=== PATIENT | male | born 1950 | race Caucasian/White ===

== ENCOUNTER 2019-08-06 12:57 | Emergency (ER) | payer OTHER ==
[2019-08-06] MEDS ORDERED: Ketorolac Tromethamine 30 MG/ML VIAL ONE (13:45)
[2019-08-06] MEDS ORDERED: Cyclobenzaprine 10 MG TAB ONE (13:45)
--- NOTE | 2019-08-06 16:17 | RAD ---
RIGHT SHOULDER THREE VIEWS: 08/06/19 HISTORY: Right shoulder pain. Neck pain. FINDINGS/IMPRESSION: There are postop changes of rotator cuff repair. There is severe degenerative changes in the glenohum eral joint. No acute fracture or dislocation is seen. Degenerative changes are also seen in the spine . There are postoperative changes and metallic hardware in the lower cervical spine. POS: [facility]
--- NOTE | 2019-08-06 18:30 | CT ---
CT OF THE CERVICAL SPINE 08/06/19 COMPARISON: None. HISTORY: Bilateral neck pain worsening over the past month. TECHNIQUE: Axial CT imaging is obtained at 2.5 mm intervals through the cervical spine with coronal and sagittal reformatted imaging. FINDINGS: Evaluation for central canal and/or neural foraminal stenosis is limited on routine cervical spine CT . Imaged lung apices appear grossly unremarkable. There is a hypodense nodule within the right lobe o f the thyroid gland measuring approximately 1 cm, incompletely imaged on this exam. Follow-up thyroid ultrasound suggested. There is a medialized retropharyngeal course of the common carotid artery and internal carotid artery , right more prominent than left. The craniocervical junction appears intact. There is moderate degenerative change at the atlantoaxial interspace. The dens, occipital condyles, and C1-2 articulation demonstrate no acute findings. There is mild anterolisthesis of C7 on T1 measuring approximately 4 mm. C2-3: There is disc space narrowing with posterior disc osteophyte complex, primarily in the left par acentral region. Bilateral facet and uncovertebral osteophyte formation causes bilateral neural effie inal stenosis, left greater than right. C3-4: Posterior disc osteophyte complex present. Bilateral facet and uncovertebral osteophyte format ion with significant bilateral neural foraminal stenosis, left greater than right. C4-5: Prominent bilateral facet and uncovertebral osteophyte formation with significant bilateral bri ral foraminal stenosis. C5-6: Prominent posterior osteophyte lead to a degree of central canal stenosis. There is prominent l eft facet and uncovertebral osteophyte formation with severe left neural foraminal stenosis and proba ble moderate right neural foraminal stenosis. C6-7: Posterior osteophyte causes severe central canal stenosis. There is severe bilateral neural for aminal stenosis on the basis of prominent bilateral facet and uncovertebral osteophyte formation. C7-T1: Bilateral facet and uncovertebral osteophyte formation causes significant bilateral neural for aminal stenosis, left greater than right. Anterior discectomy and fusion hardware is present at the C5-6 and C6-7 levels with no evidence for h ardware failure. No acute fracture or dislocation is seen. IMPRESSION: Severe degenerative changes of the cervical spine. Multilevel anterior discectomy and fusion hardware present. The degree of central canal and/or neural foraminal stenosis is not optimally assess on thi s examination. If clinically warranted, the degree of underlying central canal and/or neural foramina l stenosis could be best assessed via myelogram. Posterior osteophyte causes significant central babs l stenosis most prominent at C6-7 and C5-6. POS: [facility]
== END 2019-08-06 15:14 | disposition home or self-care (01) ==
LOC: ERS 12:57
DX: M19.011 Primary osteoarthritis, right shoulder (principal); M48.02 Spinal stenosis, cervical region; E11.9 Type 2 diabetes mellitus without complications; E78.5 Hyperlipidemia, unspecified; E78.00 Pure hypercholesterolemia, unspecified; F32.9 Major depressive disorder, single episode, unspecified; Z79.899 Other long term (current) drug therapy
CPT/HCPCS: 72125; 96372; J1885

== ENCOUNTER 2020-01-18 09:26 | Outpatient (CLI) | payer OTHER ==
--- NOTE | 2020-01-18 12:15 | CT ---
CT CERVICAL SPINE WITHOUT CONTRAST: INDICATION: A 69-year-old male with cervical radiculopathy with neck and right arm pain since 2006. COMPARISON: Noncontrast CT of the cervical spine dated 08/06/2019. FINDINGS: The ACDF spanning C5 through C7 with intervertebral disk cages is stable. The hardware appears intac t. There is solid osseous incorporation of an interbody bone graft from C5 through C7. There is only mild anterior translation of C7 on T1 which is likely degenerative. There is some mild anterior degenerative translation of C4 on C5 which is stable which is also likely degenerative. Th e craniocervical junction is normal-appearing. There is no evidence to suggest acute fracture. Mastoid air cells are clear. 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 The lung apices are clear. There is a 1 cm hypodensity in the superior pole of the right thyroid gland. There are scattered carotid calcifications. The visualized intracranial contents appear within normal limits. The craniocervical junction demonstrates mild degenerative changes. At C2-C3, there is severe facet joint degenerative change. There is a broad-based disk-osteophyte co mplex with uncovertebral hypertrophy, greater on the left. There is stable moderate to severe left a nd mild right neural foraminal narrowing. At C3-4, there is a stable disk-osteophyte complex with severe bilateral facet joint degenerative [place]. There is bilateral uncovertebral hypertrophy. Constellation of findings induces stable mild ce ntral canal narrowing with suspected mild ventral contact of the spinal cord. There is stable mild b ilateral neural foraminal narrowing, left greater than right. At C4-5, there is advanced facet osteoarthrosis, right greater than left. There is uncovertebral hyp ertrophy and a broad-based disk bulge. No appreciable osseous central canal narrowing is evident. T here is moderate right and mild left neural foraminal narrowing which is likely stable. At C5-6, there is a residual osteophyte complex with facet hypertrophy inducing stable moderate centr al canal narrowing with severe left and moderate to severe right neural foraminal narrowing. At C6-7, there is a broad-based osteophyte complex inducing moderate central canal narrowing with sev ere right and moderate left neural foraminal narrowing that is stable to the prior exam. At C7-T1, there is a residual osteophyte complex and facet joint degenerative change inducing stable mild right neural foraminal narrowing. IMPRESSION: Stable postoperative cervical spine with stable severe multilevel spondylosis with multilevel central canal and neural foraminal narrowing above. This is stable to the prior exam. POS: [facility]
== END 2020-01-18 09:27 | disposition home or self-care (01) ==
LOC: BICCT 09:26
PROVIDERS: ATTEND Neurological Surgery
DX: M47.22 Other spondylosis with radiculopathy, cervical region (principal); Z98.890 Other specified postprocedural states
CPT/HCPCS: 72125

== ENCOUNTER 2020-07-14 16:48 | Observation (INO) | payer OTHER ==
[~2020-07-14 16:48] MED LIST: Iopamidol-370 76% 500 ML 1 ML ONE
[2020-07-14 17:27] LABS: #Eosinphils 0.3 thou/uL (0.0-0.7); #Lymphocytes 1.6 thou/uL (1.20-3.40); #Monocytes 0.9 thou/uL (0.11-0.59); #Neutrophils 11.7 thou/uL (1.40-6.50); %Basophils 0.1 % (0.0-1.0); %Eosinophils 2.2 % (0.0-10.0); %Lymphocytes 10.9 % (21.0-51.0); %Monocytes 6.3 % (0.0-10.0); %Neutrophils 80.5 % (42.0-75.0); Hemoglobin 14.4 g/dL (14.0-18.0); Mean Corpuscular HGB CONC 31.4 g/dL (32.0-36.0); Mean Corpuscular Hemoglobin 23.9 pg (27.0-31.0); Mean Platelet Volume 7.6 fL (7.4-10.4); Platelet Count 406 thou/uL (130-400); Red Blood Cell (RBC) Count 6.01 mill/uL (4.70-6.10); White Blood Cell (WBC) Count 14.5 thou/uL (4.8-10.8)
[2020-07-14 17:50] LABS: ALT (SGPT) 23 U/L (8-55); AST (SGOT) 18 U/L (5-34); Albumin 4.2 g/dL (3.4-4.8); Alkaline Phosphatase 114 U/L (40-110); Anion Gap 11 mmol/L (10-20); BUN (Urea Nitrogen) 11 mg/dL (8.4-25.7); Bilirubin, Total 0.3 mg/dL (0.2-1.2); CK (CPK) 196 U/L (30-200); Calc. Creatinine Clearance 0 mL/min (70-130); Calcium 9.9 mg/dL (7.8-10.44); Carbon Dioxide 29 mmol/L (23-31); Chloride 97 mmol/L (98-107); Globulin 3.8 g/dL (2.4-3.5); Glucose 118 mg/dL (80-115); Lipase 45 U/L (8-78); Potassium 3.9 mmol/L (3.5-5.1); Sodium 133 mmol/L (136-145)
[2020-07-14 20:16] LABS: Lactic Acid 2.4 mmol/L (0.5-2.2)
[2020-07-14] MEDS ORDERED: HumaLOG 300 UNITS/3 ML VIAL SC PRN ×2 (21:38)
[2020-07-14] MEDS ORDERED: Guaifenesin DM 100-10/5 ML UDCUP PO PRN (21:38)
[2020-07-14] MEDS ORDERED: Calcium Carbonate 500 MG ChewTAB PO PRN (21:38)
[2020-07-14] MEDS ORDERED: Zolpidem Tartrate 5 MG TAB PO PRN (21:38)
[2020-07-14] MEDS ORDERED: Dextrose 50% Abboject 50 ML SYRINGE SLOW IVP PRN (21:38)
[2020-07-14] MEDS ORDERED: Ondansetron ODT 4 MG TAB PO PRN (21:38)
[2020-07-14] MEDS ORDERED: Bisacodyl 10 MG SUPP PR PRN (21:38)
[2020-07-14] MEDS ORDERED: Loperamide HCl 2 MG CAP PO PRN (21:38)
[2020-07-14] MEDS ORDERED: Dextrose 5% in Water 1,000 ML IV PRN (21:38)
[2020-07-14] MEDS ORDERED: Ondansetron PF 4 MG/2 ML Vial IVP PRN (21:38)
[2020-07-14] MEDS ORDERED: Senokot S 8.6-50 MG TAB PO PRN (21:38)
[2020-07-14 22:24] LABS: Bilirubin Negative (Negative); Blood, Urine Negative (Negative); Clarity Clear (Clear); Glucose, Urine (Dipstick) Normal (Negative); Ketone, Urine Negative (Negative); Leukocyte Negative Leu/uL (Negative); Nitrite Negative (Negative); Protein, Urine (Dipstick) 10 mg/dL (Neg-Trace); Specific Gravity, Urine 1.022 (1.002-1.036); Urobilinogen Normal mg/dL (Less than 2); pH, Urine 6.5 (5.0-9.0)
[2020-07-14 23:17] VITALS: BMI 42.0
[2020-07-15] MEDS: Sodium Chloride 0.9% 1,000 ML IV SCH ×2 (00:20→15:49)
[2020-07-15] MEDS ORDERED: Acetaminophen 325 MG TAB ONE (01:32)
[2020-07-15] MEDS ORDERED: Zolpidem Tartrate 5 MG TAB ONE (01:32)
[2020-07-15] MEDS: Acetaminophen 325 MG TAB PO PRN ×2 (01:34→17:25)
[2020-07-15 01:54] LABS: SARS-CoV-2 PCR by NAA Not Detected (NotDetected)
[2020-07-15] MEDS ORDERED: rOPINIRole HCl 1 MG TAB PO SCH (03:30)
[2020-07-15 06:13] LABS: Lactic Acid 1.2 mmol/L (0.5-2.2)
[2020-07-15 06:14] LABS: #Eosinphils 0.6 thou/uL (0.0-0.7); #Lymphocytes 2.6 thou/uL (1.20-3.40); #Monocytes 1.1 thou/uL (0.11-0.59); #Neutrophils 10.9 thou/uL (1.40-6.50); %Basophils 0.2 % (0.0-1.0); %Eosinophils 3.7 % (0.0-10.0); %Lymphocytes 17.4 % (21.0-51.0); %Monocytes 7.2 % (0.0-10.0); %Neutrophils 71.6 % (42.0-75.0); Hemoglobin 13.3 g/dL (14.0-18.0); Mean Corpuscular HGB CONC 31.2 g/dL (32.0-36.0); Mean Corpuscular Hemoglobin 23.6 pg (27.0-31.0); Mean Corpuscular Volume 75.8 fL (78.0-98.0); Mean Platelet Volume 7.6 fL (7.4-10.4); Platelet Count 341 thou/uL (130-400); RBC Distribution Width 15.7 % (11.5-14.5); Red Blood Cell (RBC) Count 5.65 mill/uL (4.70-6.10); White Blood Cell (WBC) Count 15.2 thou/uL (4.8-10.8)
[2020-07-15 06:33] LABS: Albumin 3.6 g/dL (3.4-4.8)
[2020-07-15 06:34] LABS: Chloride 100 mmol/L (98-107)
[2020-07-15 06:37] LABS: Bilirubin, Total 0.3 mg/dL (0.2-1.2)
[2020-07-15 06:39] LABS: Calc. Creatinine Clearance 141 mL/min (70-130); Phosphorus 3.8 mg/dL (2.3-4.7)
[2020-07-15 06:40] LABS: BUN (Urea Nitrogen) 11 mg/dL (8.4-25.7)
[2020-07-15 06:41] LABS: Magnesium 1.8 mg/dL (1.6-2.6)
[2020-07-15 07:28] LABS: Potassium 3.7 mmol/L (3.5-5.1); Sodium 133 mmol/L (136-145)
[2020-07-15 07:29] LABS: Carbon Dioxide 27 mmol/L (23-31)
[2020-07-15 07:30] LABS: Glucose 138 mg/dL (80-115)
[2020-07-15 07:32] LABS: Globulin 3.6 g/dL (2.4-3.5); Protein, Total 7.2 g/dL (5.8-8.1)
[2020-07-15 07:33] LABS: AST (SGOT) 20 U/L (5-34); Alkaline Phosphatase 103 U/L (40-110)
[2020-07-15 07:37] LABS: ALT (SGPT) 21 U/L (8-55)
[2020-07-15 07:38] LABS: Anion Gap 10 mmol/L (10-20)
[2020-07-15] MEDS ORDERED: Famotidine 20 MG TAB ONE (07:52)
[2020-07-15] MEDS: Famotidine 20 MG TAB PO SCH ×2 (08:06→21:55)
[2020-07-15] MEDS ORDERED: Potassium Chloride 20 MEQ TAB PO SCH (09:00)
[2020-07-15] MEDS ORDERED: Potassium Chloride 20 MEQ TAB ONE (09:39)
[2020-07-15] MEDS: Atenolol 25 MG TAB PO SCH (09:40)
[2020-07-15] MEDS: Magnesium Oxide 400 MG TAB PO SCH (09:42)
[2020-07-15] MEDS ORDERED: HumaLOG 300 UNITS/3 ML VIAL ONE (12:09)
[2020-07-15] MEDS ORDERED: Bupropion 150 MG XL TAB PO SCH (12:15)
[2020-07-15] MEDS ORDERED: PARoxetine 20 MG TAB PO SCH (12:15)
[2020-07-15 14:51] LABS: Troponin I Less than 0.010 ng/mL (< 0.028)
[2020-07-15] MEDS: metFORMIN 850 MG TAB PO SCH (17:25)
[2020-07-15] MEDS ORDERED: Cyclobenzaprine 10 MG TAB PO PRN (18:17)
[2020-07-15] MEDS ORDERED: rOPINIRole HCl 0.5 MG TAB PO SCH (21:00)
[2020-07-15] MEDS ORDERED: Gabapentin 300 MG CAP PO SCH (21:30)
[2020-07-16] MEDS: Sodium Chloride 0.9% 1,000 ML IV SCH (05:05)
[2020-07-16 05:06] LABS: Hemoglobin A1c 8.9 % (4.0-6.0)
[2020-07-16 05:08] LABS: #Eosinphils 0.5 thou/uL (0.0-0.7); #Lymphocytes 2.4 thou/uL (1.20-3.40); #Monocytes 0.8 thou/uL (0.11-0.59); #Neutrophils 7.8 thou/uL (1.40-6.50); %Basophils 0.2 % (0.0-1.0); %Eosinophils 4.7 % (0.0-10.0); %Lymphocytes 20.9 % (21.0-51.0); %Neutrophils 67.2 % (42.0-75.0); Hemoglobin 12.5 g/dL (14.0-18.0); Mean Corpuscular Hemoglobin 23.6 pg (27.0-31.0); Mean Corpuscular Volume 75.9 fL (78.0-98.0); Mean Platelet Volume 7.6 fL (7.4-10.4); Platelet Count 349 thou/uL (130-400); RBC Distribution Width 15.6 % (11.5-14.5); Red Blood Cell (RBC) Count 5.31 mill/uL (4.70-6.10); White Blood Cell (WBC) Count 11.7 thou/uL (4.8-10.8)
[2020-07-16 05:22] LABS: Anion Gap 13 mmol/L (10-20); BUN (Urea Nitrogen) 11 mg/dL (8.4-25.7); Calc. Creatinine Clearance 149 mL/min (70-130); Calcium 8.8 mg/dL (7.8-10.44); Carbon Dioxide 23 mmol/L (23-31); Cardiac Risk 4.8 (Less than 4.5); Chloride 103 mmol/L (98-107); Cholesterol 134 mg/dl (< 200 Desired); Glucose 144 mg/dL (80-115); HDL Cholesterol 28 mg/dL (>60 Neg Risk); LDL Cholesterol, Calculated 82 mg/dL; Sodium 135 mmol/L (136-145); Triglycerides 121 mg/dL (Less than 150)
[2020-07-16] MEDS ORDERED: PARoxetine 20 MG TAB PO SCH (09:00)
[2020-07-16] MEDS ORDERED: Bupropion 150 MG XL TAB PO SCH (09:00)
[2020-07-16] MEDS ORDERED: Alogliptin 25 MG TAB PO SCH (09:00)
[2020-07-16] MEDS: metFORMIN 850 MG TAB PO SCH (09:21)
[2020-07-16] MEDS: Magnesium Oxide 400 MG TAB PO SCH (09:22)
[2020-07-16] MEDS: Famotidine 20 MG TAB PO SCH (09:22)
[2020-07-16] MEDS: Atenolol 25 MG TAB PO SCH (09:22)
[2020-07-16 13:25] VITALS: BP 174/83; TEMP 98.1
[2020-07-16] MEDS ORDERED: Gabapentin 300 MG CAP PO SCH (21:00)
== END 2020-07-16 16:05 | disposition home or self-care (01) ==
LOC: ERS 16:48 → INTOOBSV 20:58 → ERHOLD 20:58 → 2SW 07-15 15:13
PROVIDERS: ADMIT Internal Medicine; ATTEND Hospitalist
DX: R55 Syncope and collapse (principal); I49.3 Ventricular premature depolarization; I10 Essential (primary) hypertension; E11.10 Type 2 diabetes mellitus with ketoacidosis without coma; E87.1 Hypo-osmolality and hyponatremia; E78.5 Hyperlipidemia, unspecified; E78.00 Pure hypercholesterolemia, unspecified; D72.829 Elevated white blood cell count, unspecified; I08.1 Rheumatic disorders of both mitral and tricuspid valves; Z79.84 Long term (current) use of oral hypoglycemic drugs; Z79.899 Other long term (current) drug therapy; Z88.5 Allergy status to narcotic agent; Z88.8 Allergy status to other drugs, medicaments and biological substances; Z20.822 Contact with and (suspected) exposure to COVID-19
CPT/HCPCS: 36415; 36416; 70450; 70551; 71045; 71275; 80048; 80053; 80061; 81003; 82550; 83036; 83605; 83690; 83735; 83880; 84100; 84146; 84443; 84484; 85025; 85379; 87040; 87635; 93005; 93306; 93880; 94640; G0378; J1815; J7620; Q9967; U0003; U0005

== ENCOUNTER 2020-07-19 18:43 | Inpatient (IN) | payer OTHER ==
[2020-07-19] MEDS ORDERED: Fentanyl 100 MCG/2 ML VIAL ONE ×2 (19:09→22:51)
[2020-07-19] MEDS ORDERED: cefTRIAXone\\ROCEPHIN 1 GM VIAL ONE (19:09)
[2020-07-19] MEDS ORDERED: Ketorolac Tromethamine 30 MG/ML VIAL ONE (19:09)
[2020-07-19 19:48] LABS: Hemoglobin 14.3 g/dL (14.0-18.0); Mean Corpuscular HGB CONC 31.4 g/dL (32.0-36.0); Mean Corpuscular Hemoglobin 23.5 pg (27.0-31.0); Mean Corpuscular Volume 74.9 fL (78.0-98.0); Mean Platelet Volume 7.7 fL (7.4-10.4); Platelet Count 436 thou/uL (130-400); RBC Distribution Width 15.9 % (11.5-14.5); Red Blood Cell (RBC) Count 6.06 mill/uL (4.70-6.10); White Blood Cell (WBC) Count 24.9 thou/uL (4.8-10.8)
[2020-07-19 20:07] LABS: ALT (SGPT) 25 U/L (8-55); AST (SGOT) 27 U/L (5-34); Albumin 4.3 g/dL (3.4-4.8); Alkaline Phosphatase 103 U/L (40-110); Anion Gap 19 mmol/L (10-20); BUN (Urea Nitrogen) 16 mg/dL (8.4-25.7); Bilirubin, Total 0.6 mg/dL (0.2-1.2); Calc. Creatinine Clearance 0 mL/min (70-130); Calcium 9.6 mg/dL (7.8-10.44); Carbon Dioxide 20 mmol/L (23-31); Chloride 91 mmol/L (98-107); Globulin 4.1 g/dL (2.4-3.5); Glucose 164 mg/dL (80-115); Potassium 4.4 mmol/L (3.5-5.1); Protein, Total 8.4 g/dL (5.8-8.1); Sodium 126 mmol/L (136-145)
[2020-07-19 20:08] LABS: Anisocytosis SLIGHT = 6-15 cells (100X) (0-5/hpf); Band 11 % (5-11); Eosinophils 1 % (0-10); Hypochromia SLIGHT = 6-15 cells (100X) (0-5/hpf); Lymphocytes 3 % (21-51); MDiff Complete? YES; Monocytes 6 % (0-10); Myelocyte 1 % (0-0); Neutrophil 78 % (42-75); Platelet Morphology Comment Appears Increased; Polychromasia SLIGHT = 2-3 cells (100X) (0-2/hpf)
[2020-07-19] MEDS ORDERED: Vancomycin 1 GM/200 ML BAG ONE (20:37)
[2020-07-19] MEDS ORDERED: Loperamide HCl 2 MG CAP PO PRN (23:10)
[2020-07-19] MEDS ORDERED: Dextrose 50% Abboject 50 ML SYRINGE SLOW IVP PRN (23:10)
[2020-07-19] MEDS ORDERED: Ondansetron PF 4 MG/2 ML Vial IVP PRN (23:10)
[2020-07-19] MEDS ORDERED: Bisacodyl 5 MG TAB PO PRN (23:10)
[2020-07-19] MEDS ORDERED: Dextrose 5% in Water 1,000 ML IV PRN (23:10)
[2020-07-19] MEDS ORDERED: hydrALAZINE 20 MG/ML VIAL SLOW IVP PRN (23:12)
[2020-07-19] MEDS ORDERED: Vancomycin 1 GM in Premix Bag 1 BAG IVPB SCH (23:15)
[2020-07-20 00:29] VITALS: BMI 41.2
[2020-07-20] MEDS: Acetaminophen 325 MG TAB PO PRN ×4 (01:29→23:17)
[2020-07-20 06:09] LABS: #Eosinphils 0.3 thou/uL (0.0-0.7); #Lymphocytes 2.2 thou/uL (1.20-3.40); #Monocytes 1.4 thou/uL (0.11-0.59); #Neutrophils 10.7 thou/uL (1.40-6.50); %Basophils 0.2 % (0.0-1.0); %Eosinophils 2.1 % (0.0-10.0); %Monocytes 9.4 % (0.0-10.0); %Neutrophils 73.3 % (42.0-75.0); Hemoglobin 12.7 g/dL (14.0-18.0); Mean Corpuscular HGB CONC 31.5 g/dL (32.0-36.0); Mean Corpuscular Hemoglobin 24.2 pg (27.0-31.0); Mean Corpuscular Volume 76.7 fL (78.0-98.0); Mean Platelet Volume 7.7 fL (7.4-10.4); Platelet Count 343 thou/uL (130-400); RBC Distribution Width 15.7 % (11.5-14.5); Red Blood Cell (RBC) Count 5.23 mill/uL (4.70-6.10); White Blood Cell (WBC) Count 14.7 thou/uL (4.8-10.8)
[2020-07-20 06:22] LABS: Anion Gap 14 mmol/L (10-20); BUN (Urea Nitrogen) 18 mg/dL (8.4-25.7); Calc. Creatinine Clearance 124 mL/min (70-130); Calcium 8.7 mg/dL (7.8-10.44); Carbon Dioxide 24 mmol/L (23-31); Chloride 94 mmol/L (98-107); Glucose 114 mg/dL (80-115); Potassium 3.6 mmol/L (3.5-5.1); Sodium 128 mmol/L (136-145)
[2020-07-20 07:02] LABS: Iron 24 ug/dL (65-175); Iron Binding Capacity, Total 369 mcg/dL (261-462)
[2020-07-20 08:51] LABS: Creatinine, Urine 82.2 mg/dL (63-166)
[2020-07-20] MEDS: Bupropion 150 MG XL TAB PO SCH (09:00)
[2020-07-20] MEDS: Zinc Sulfate 220 MG CAP PO SCH (09:00)
[2020-07-20] MEDS: metFORMIN 850 MG TAB PO SCH ×2 (09:01→16:44)
[2020-07-20] MEDS: Atenolol 25 MG TAB PO SCH (09:01)
[2020-07-20] MEDS: glipiZIDE 10 MG TAB PO SCH ×2 (09:01→20:05)
[2020-07-20] MEDS: Enoxaparin Sodium 40 MG/0.4 ML SYRINGE SC SCH (09:01)
[2020-07-20] MEDS: VANCOMYCIN 1.25 GM/250 ML BAG 1.25 GM in Premix Bag 1 BAG IVPB SCH ×2 (09:02→20:00)
[2020-07-20] MEDS ORDERED: Ketorolac Tromethamine 30 MG/ML VIAL IVP SCH (10:00)
[2020-07-20] MEDS ORDERED: Potassium Chloride 20 MEQ TAB PO SCH (10:30)
[2020-07-20] MEDS ORDERED: Iron, Sodium Ferric Gluconate 250 MG in Sodium Chloride 0.9% 250 ML 250 ML IVPB SCH (19:00)
[2020-07-20] MEDS: Fentanyl 100 MCG/2 ML VIAL SLOW IVP PRN (19:38)
[2020-07-20] MEDS: Cyclobenzaprine 10 MG TAB PO PRN (20:05)
[2020-07-21] MEDS: Acetaminophen 325 MG TAB PO PRN (05:02)
[2020-07-21 05:49] LABS: #Eosinphils 0.3 thou/uL (0.0-0.7); #Lymphocytes 2.2 thou/uL (1.20-3.40); #Monocytes 0.9 thou/uL (0.11-0.59); #Neutrophils 7.7 thou/uL (1.40-6.50); %Basophils 0.3 % (0.0-1.0); %Eosinophils 2.6 % (0.0-10.0); %Lymphocytes 20.2 % (21.0-51.0); %Monocytes 7.7 % (0.0-10.0); %Neutrophils 69.4 % (42.0-75.0); Hemoglobin 12.5 g/dL (14.0-18.0); Mean Corpuscular HGB CONC 31.8 g/dL (32.0-36.0); Mean Corpuscular Hemoglobin 24.2 pg (27.0-31.0); Mean Corpuscular Volume 76.3 fL (78.0-98.0); Mean Platelet Volume 7.9 fL (7.4-10.4); Platelet Count 315 thou/uL (130-400); RBC Distribution Width 15.8 % (11.5-14.5); Red Blood Cell (RBC) Count 5.14 mill/uL (4.70-6.10); White Blood Cell (WBC) Count 11.1 thou/uL (4.8-10.8)
[2020-07-21 05:54] LABS: Anion Gap 12 mmol/L (10-20); BUN (Urea Nitrogen) 12 mg/dL (8.4-25.7); Calc. Creatinine Clearance 138 mL/min (70-130); Calcium 9.2 mg/dL (7.8-10.44); Carbon Dioxide 25 mmol/L (23-31); Chloride 102 mmol/L (98-107); Glucose 132 mg/dL (80-115); Potassium 3.7 mmol/L (3.5-5.1); Sodium 135 mmol/L (136-145)
[2020-07-21] MEDS: Iron, Sodium Ferric Gluconate 250 MG in Sodium Chloride 0.9% 250 ML 250 ML IVPB SCH ×2 (08:19→21:23)
[2020-07-21] MEDS: Fentanyl 100 MCG/2 ML VIAL SLOW IVP PRN ×4 (08:21→16:23)
[2020-07-21] MEDS: Bupropion 150 MG XL TAB PO SCH (08:27)
[2020-07-21] MEDS: metFORMIN 850 MG TAB PO SCH ×2 (08:27→17:53)
[2020-07-21] MEDS: Potassium Chloride 20 MEQ TAB PO SCH (08:27)
[2020-07-21] MEDS: Atenolol 25 MG TAB PO SCH (08:27)
[2020-07-21] MEDS: glipiZIDE 10 MG TAB PO SCH ×2 (08:27→21:16)
[2020-07-21] MEDS: Zinc Sulfate 220 MG CAP PO SCH (08:28)
[2020-07-21] MEDS: Enoxaparin Sodium 40 MG/0.4 ML SYRINGE SC SCH (08:28)
[2020-07-21 08:34] LABS: Vancomycin, Trough 9.3 ug/mL
[2020-07-21] MEDS: VANCOMYCIN 1.25 GM/250 ML BAG 1.25 GM in Premix Bag 1 BAG IVPB SCH (15:09)
[2020-07-21] MEDS ORDERED: Bupivacaine PF 0.5% 30 ML VIAL ONE (17:27)
[2020-07-21] MEDS ORDERED: EPINEPHrine 1 MG/ML AMP ONE (17:27)
[2020-07-21] MEDS ORDERED: Sodium Chloride 0.9% 30 ML ONE (17:28)
[2020-07-21] MEDS ORDERED: Thrombin 5000 UNITS/5 ML VIAL ONE (17:28)
[2020-07-21] MEDS ORDERED: Bacitracin Zinc Ointment 30 gm TUBE ONE (17:28)
[2020-07-21] MEDS ORDERED: Fentanyl 100 MCG/2 ML VIAL ONE (17:37)
[2020-07-21] MEDS ORDERED: ePHEDrine Sulfate 50 MG/10 ML VIAL ONE (18:34)
[2020-07-21] MEDS ORDERED: PROPOFOL 200 MG/20 ML VIAL ONE (18:34)
[2020-07-21] MEDS ORDERED: Lidocaine 1% PF 5 ML VIAL ONE (18:34)
[2020-07-21] MEDS ORDERED: Metoclopramide HCl 10 MG/2 ML VIAL ONE (18:34)
[2020-07-21] MEDS ORDERED: Ondansetron PF 4 MG/2 ML Vial ONE (18:34)
[2020-07-21] MEDS ORDERED: PHENYLEPHRINE-NS 100 MCG/ML 10 ML SYRINGE ONE (18:34)
[2020-07-21] MEDS ORDERED: Promethazine HCl 25 MG/ML VIAL SLOW IVP PRN (20:39)
[2020-07-21] MEDS ORDERED: Ondansetron HCl/PF 4 MG/2 ML Vial IVP PRN (20:39)
[2020-07-21] MEDS ORDERED: Promethazine HCl 25 MG/ML VIAL IM PRN (20:39)
[2020-07-21] MEDS ORDERED: Vancomycin 1.5 GRAM/300 ML BAG 1.5 GM in Premix Bag 1 BAG IVPB SCH (21:00)
[2020-07-21] MEDS: Cefepime 2 GM in Sodium Chloride 0.9% 100 ML IVPB SCH (21:16)
[2020-07-21] MEDS: Gabapentin 300 MG CAP PO SCH (21:17)
[2020-07-21] MEDS: Cyproheptadine 4 MG TAB PO SCH (21:17)
[2020-07-21] MEDS: Cyclobenzaprine 10 MG TAB PO PRN (21:23)
[2020-07-22] MEDS: Fentanyl 100 MCG/2 ML VIAL SLOW IVP PRN ×4 (02:47→23:52)
[2020-07-22] MEDS ORDERED: Promethazine HCl 25 MG/ML VIAL IM PRN (03:21)
[2020-07-22] MEDS ORDERED: HYDROmorphone 2 MG/ML VIAL SLOW IVP PRN (03:23)
[2020-07-22] MEDS ORDERED: Diazepam 10 MG/2 ML SYRINGE IVP PRN (03:24)
[2020-07-22 05:52] LABS: #Eosinphils 0.2 thou/uL (0.0-0.7); #Lymphocytes 1.9 thou/uL (1.20-3.40); #Neutrophils 10.4 thou/uL (1.40-6.50); %Basophils 0.1 % (0.0-1.0); %Eosinophils 1.6 % (0.0-10.0); %Lymphocytes 13.9 % (21.0-51.0); %Neutrophils 77.4 % (42.0-75.0); Hemoglobin 11.6 g/dL (14.0-18.0); Mean Corpuscular HGB CONC 30.4 g/dL (32.0-36.0); Mean Corpuscular Hemoglobin 23.4 pg (27.0-31.0); Mean Corpuscular Volume 76.9 fL (78.0-98.0); Mean Platelet Volume 7.7 fL (7.4-10.4); Platelet Count 351 thou/uL (130-400); RBC Distribution Width 15.8 % (11.5-14.5); Red Blood Cell (RBC) Count 4.95 mill/uL (4.70-6.10); White Blood Cell (WBC) Count 13.5 thou/uL (4.8-10.8)
[2020-07-22 06:10] LABS: Anion Gap 10 mmol/L (10-20); BUN (Urea Nitrogen) 9 mg/dL (8.4-25.7); Calc. Creatinine Clearance 148 mL/min (70-130); Calcium 8.5 mg/dL (7.8-10.44); Carbon Dioxide 25 mmol/L (23-31); Chloride 103 mmol/L (98-107); Glucose 127 mg/dL (80-115); Potassium 3.7 mmol/L (3.5-5.1); Sodium 134 mmol/L (136-145)
[2020-07-22] MEDS: Gentamicin Sulfate 80 MG in Premix Bag 1 BAG IVPB SCH ×3 (06:27→21:00)
[2020-07-22] MEDS: Ketorolac Tromethamine 30 MG/ML VIAL IVP SCH ×2 (06:28→12:01)
[2020-07-22] MEDS: metFORMIN 850 MG TAB PO SCH ×2 (08:21→17:01)
[2020-07-22] MEDS: Potassium Chloride 20 MEQ TAB PO SCH (08:21)
[2020-07-22] MEDS: Enoxaparin Sodium 40 MG/0.4 ML SYRINGE SC SCH (08:21)
[2020-07-22] MEDS: Bupropion 150 MG XL TAB PO SCH (08:21)
[2020-07-22] MEDS: Zinc Sulfate 220 MG CAP PO SCH (08:21)
[2020-07-22] MEDS: Atenolol 25 MG TAB PO SCH (08:21)
[2020-07-22] MEDS: glipiZIDE 10 MG TAB PO SCH ×2 (08:21→21:00)
[2020-07-22] MEDS: Alogliptin 25 MG TAB PO SCH (08:22)
[2020-07-22] MEDS: Cefepime 2 GM in Sodium Chloride 0.9% 100 ML IVPB SCH ×2 (08:22→20:59)
[2020-07-22] MEDS: Vancomycin 1 GM in Premix Bag 1 BAG IVPB SCH ×2 (09:28→20:59)
[2020-07-22] MEDS: HumaLOG 300 UNITS/3 ML VIAL SC PRN (12:03)
[2020-07-22] MEDS: Cyclobenzaprine 10 MG TAB PO PRN (21:00)
[2020-07-22] MEDS: Cyproheptadine 4 MG TAB PO SCH (21:00)
[2020-07-22] MEDS: Gabapentin 300 MG CAP PO SCH (21:00)
[2020-07-23] MEDS: Fentanyl 100 MCG/2 ML VIAL SLOW IVP PRN ×4 (03:11→20:31)
[2020-07-23] MEDS: Gentamicin Sulfate 80 MG in Premix Bag 1 BAG IVPB SCH ×3 (06:13→23:00)
[2020-07-23 06:38] LABS: Anion Gap 11 mmol/L (10-20); BUN (Urea Nitrogen) 12 mg/dL (8.4-25.7); Calc. Creatinine Clearance 143 mL/min (70-130); Calcium 8.9 mg/dL (7.8-10.44); Carbon Dioxide 23 mmol/L (23-31); Chloride 103 mmol/L (98-107); Glucose 121 mg/dL (80-115); Potassium 4.3 mmol/L (3.5-5.1); Sodium 133 mmol/L (136-145)
[2020-07-23] MEDS: glipiZIDE 10 MG TAB PO SCH ×2 (08:05→20:26)
[2020-07-23] MEDS: Bupropion 150 MG XL TAB PO SCH (08:05)
[2020-07-23] MEDS: Zinc Sulfate 220 MG CAP PO SCH (08:06)
[2020-07-23] MEDS: Enoxaparin Sodium 40 MG/0.4 ML SYRINGE SC SCH (08:06)
[2020-07-23] MEDS: Vancomycin 1 GM in Premix Bag 1 BAG IVPB SCH ×2 (08:06→20:23)
[2020-07-23] MEDS: Alogliptin 25 MG TAB PO SCH (08:06)
[2020-07-23] MEDS: Atenolol 25 MG TAB PO SCH (08:06)
[2020-07-23] MEDS: metFORMIN 850 MG TAB PO SCH ×2 (08:06→17:05)
[2020-07-23] MEDS: Cefepime 2 GM in Sodium Chloride 0.9% 100 ML IVPB SCH ×2 (08:07→20:23)
[2020-07-23] MEDS: Cyproheptadine 4 MG TAB PO SCH (20:25)
[2020-07-23] MEDS: Gabapentin 300 MG CAP PO SCH (20:26)
[2020-07-24] MEDS: Fentanyl 100 MCG/2 ML VIAL SLOW IVP PRN ×2 (05:49→09:02)
[2020-07-24] MEDS: Gentamicin Sulfate 80 MG in Premix Bag 1 BAG IVPB SCH (05:53)
[2020-07-24 06:59] LABS: #Basophils 0.1 thou/uL (0.0-0.2); #Eosinphils 0.4 thou/uL (0.0-0.7); #Lymphocytes 1.7 thou/uL (1.20-3.40); #Monocytes 0.7 thou/uL (0.11-0.59); #Neutrophils 6.9 thou/uL (1.40-6.50); %Basophils 0.6 % (0.0-1.0); %Eosinophils 4.3 % (0.0-10.0); %Lymphocytes 17.4 % (21.0-51.0); %Monocytes 7.4 % (0.0-10.0); %Neutrophils 70.3 % (42.0-75.0); Hemoglobin 12.4 g/dL (14.0-18.0); Mean Corpuscular HGB CONC 32.4 g/dL (32.0-36.0); Mean Corpuscular Hemoglobin 25.1 pg (27.0-31.0); Mean Corpuscular Volume 77.5 fL (78.0-98.0); Mean Platelet Volume 7.8 fL (7.4-10.4); Platelet Count 343 thou/uL (130-400); RBC Distribution Width 16.2 % (11.5-14.5); Red Blood Cell (RBC) Count 4.94 mill/uL (4.70-6.10); White Blood Cell (WBC) Count 9.8 thou/uL (4.8-10.8)
[2020-07-24 07:18] LABS: Anion Gap 12 mmol/L (10-20); BUN (Urea Nitrogen) 11 mg/dL (8.4-25.7); Calc. Creatinine Clearance 148 mL/min (70-130); Calcium 9.3 mg/dL (7.8-10.44); Carbon Dioxide 26 mmol/L (23-31); Chloride 101 mmol/L (98-107); Glucose 75 mg/dL (80-115); Potassium 3.8 mmol/L (3.5-5.1); Sodium 135 mmol/L (136-145)
[2020-07-24] MEDS: Atenolol 25 MG TAB PO SCH (08:56)
[2020-07-24] MEDS: Cefepime 2 GM in Sodium Chloride 0.9% 100 ML IVPB SCH (08:56)
[2020-07-24] MEDS: glipiZIDE 10 MG TAB PO SCH ×2 (08:57→20:04)
[2020-07-24] MEDS: Bupropion 150 MG XL TAB PO SCH (08:57)
[2020-07-24] MEDS: metFORMIN 850 MG TAB PO SCH ×2 (08:57→17:14)
[2020-07-24] MEDS: Zinc Sulfate 220 MG CAP PO SCH (08:57)
[2020-07-24] MEDS: Alogliptin 25 MG TAB PO SCH (08:57)
[2020-07-24] MEDS: Enoxaparin Sodium 40 MG/0.4 ML SYRINGE SC SCH (08:57)
[2020-07-24] MEDS ORDERED: Amlodipine 5 MG TAB PO SCH (09:45)
[2020-07-24] MEDS: Vancomycin 1 GM in Premix Bag 1 BAG IVPB SCH (10:30)
[2020-07-24] MEDS ORDERED: Indomethacin 25 mg Capsule PO SCH (11:45)
[2020-07-24] MEDS: Cyclobenzaprine 10 MG TAB PO PRN (13:47)
[2020-07-24] MEDS: HumaLOG 300 UNITS/3 ML VIAL SC PRN (13:49)
[2020-07-24] MEDS: predniSONE 20 MG TAB PO SCH (17:14)
[2020-07-24] MEDS: Colchicine 0.6 MG TAB PO SCH (20:02)
[2020-07-24] MEDS: Gabapentin 300 MG CAP PO SCH (20:03)
[2020-07-24] MEDS: Cyproheptadine 4 MG TAB PO SCH (20:03)
[2020-07-24] MEDS: Acetaminophen 325 MG TAB PO PRN (20:04)
[2020-07-24] MEDS: Indomethacin 25 mg Capsule PO SCH (20:04)
[2020-07-25] MEDS: predniSONE 20 MG TAB PO SCH (05:20)
[2020-07-25] MEDS: Acetaminophen 325 MG TAB PO PRN (05:20)
[2020-07-25] MEDS: Enoxaparin Sodium 40 MG/0.4 ML SYRINGE SC SCH (07:17)
[2020-07-25 07:18] LABS: Anion Gap 15 mmol/L (10-20); BUN (Urea Nitrogen) 12 mg/dL (8.4-25.7); Calc. Creatinine Clearance 141 mL/min (70-130); Carbon Dioxide 23 mmol/L (23-31); Chloride 99 mmol/L (98-107); Glucose 162 mg/dL (80-115); Potassium 4.2 mmol/L (3.5-5.1); Sodium 133 mmol/L (136-145); Uric Acid 4.3 mg/dL (3.5-7.2)
[2020-07-25] MEDS: Alogliptin 25 MG TAB PO SCH (07:32)
[2020-07-25] MEDS: metFORMIN 850 MG TAB PO SCH ×2 (07:32→16:06)
[2020-07-25] MEDS: Bupropion 150 MG XL TAB PO SCH (07:33)
[2020-07-25] MEDS: Atenolol 25 MG TAB PO SCH (07:33)
[2020-07-25] MEDS: Colchicine 0.6 MG TAB PO SCH (07:33)
[2020-07-25] MEDS: Zinc Sulfate 220 MG CAP PO SCH ×2 (07:33→07:34)
[2020-07-25] MEDS: glipiZIDE 10 MG TAB PO SCH (07:33)
[2020-07-25] MEDS: Indomethacin 25 mg Capsule PO SCH (07:33)
[2020-07-25] MEDS ORDERED: Amlodipine 5 MG TAB PO SCH ×2 (09:00→12:30)
[2020-07-25] MEDS ORDERED: Bacitracin Zinc Ointment 30 gm TUBE ONE (13:04)
[2020-07-25] MEDS ORDERED: Fentanyl 100 MCG/2 ML VIAL ONE (13:37)
[2020-07-25] MEDS ORDERED: Lidocaine 1% PF 5 ML VIAL ONE (14:02)
[2020-07-25] MEDS ORDERED: Ketorolac Tromethamine 30 MG/ML VIAL ONE (14:02)
[2020-07-25] MEDS ORDERED: Ondansetron PF 4 MG/2 ML Vial ONE (14:02)
[2020-07-25] MEDS ORDERED: PROPOFOL 200 MG/20 ML VIAL ONE (14:02)
[2020-07-25] MEDS ORDERED: Bupivacaine PF 0.5% 30 ML VIAL ONE (14:25)
[2020-07-25] MEDS ORDERED: Promethazine HCl 25 MG/ML VIAL SLOW IVP PRN (14:32)
[2020-07-25] MEDS ORDERED: HYDROmorphone 2 MG/ML VIAL SLOW IVP PRN (14:32)
[2020-07-25] MEDS ORDERED: Ondansetron HCl/PF 4 MG/2 ML Vial IVP PRN (14:32)
[2020-07-25] MEDS: HumaLOG 300 UNITS/3 ML VIAL SC PRN (16:07)
[2020-07-25 16:10] VITALS: BP 155/89
[2020-07-25 16:13] VITALS: TEMP 97.9
[2020-07-26] MEDS ORDERED: Amlodipine 5 MG TAB PO SCH (09:00)
== END 2020-07-25 17:06 | disposition home or self-care (01) | DRG 513 ==
LOC: ERS 18:43 → T4-B 22:51 → OBSVTOIN 07-21 16:18
PROVIDERS: ADMIT Internal Medicine; ATTEND Internal Medicine
PROC: 0RBN0ZZ Excision of Right Wrist Joint, Open Approach (ICD-10-PCS; principal; 2020-07-21)
PROC: 0RBN0ZZ Excision of Right Wrist Joint, Open Approach (ICD-10-PCS; 2020-07-25)
DX: M65.141 Other infective (teno)synovitis, right hand (principal); L03.113 Cellulitis of right upper limb; N17.9 Acute kidney failure, unspecified; E22.2 Syndrome of inappropriate secretion of antidiuretic hormone; Z68.41 Body mass index [BMI] 40.0-44.9, adult; M11.231 Other chondrocalcinosis, right wrist; Z20.822 Contact with and (suspected) exposure to COVID-19; I10 Essential (primary) hypertension; E11.9 Type 2 diabetes mellitus without complications; E78.5 Hyperlipidemia, unspecified; F41.9 Anxiety disorder, unspecified; E66.9 Obesity, unspecified; G25.81 Restless legs syndrome; D50.9 Iron deficiency anemia, unspecified; E78.00 Pure hypercholesterolemia, unspecified; F32.9 Major depressive disorder, single episode, unspecified; Z79.84 Long term (current) use of oral hypoglycemic drugs; Z79.899 Other long term (current) drug therapy; Z88.5 Allergy status to narcotic agent; Z88.8 Allergy status to other drugs, medicaments and biological substances
CPT/HCPCS: 36415; 36416; 76999; 80048; 80053; 80202; 82570; 82728; 83540; 83550; 83605; 83930; 83935; 84156; 84300; 84550; 84560; 85025; 87040; 87070; 87205; 89060; 96365; 96366; 96367; 96372; 96375; 96376; G0378; J0171; J0692; J0696; J1580; J1650; J1885; J2405; J2704; J2765; J2916; J3010; J3370; J3490; J7050; J7512; J7620; Q9967; S0020

== ENCOUNTER 2021-03-27 17:00 | Emergency (ER) | payer OTHER ==
[2021-03-27] MEDS ORDERED: traMADol HCl 50 MG TAB ONE (17:56)
[2021-03-27] MEDS ORDERED: Xylocaine 1% w/ Epi 1:100K 10 ML VIAL ONE (19:30)
== END 2021-03-27 20:01 | disposition home or self-care (01) ==
LOC: ERS 17:00
DX: S41.012A Laceration without foreign body of left shoulder, initial encounter (principal); S20.20XA Contusion of thorax, unspecified, initial encounter; E11.9 Type 2 diabetes mellitus without complications; I10 Essential (primary) hypertension; E78.5 Hyperlipidemia, unspecified; E78.00 Pure hypercholesterolemia, unspecified; W01.0XXA Fall on same level from slipping, tripping and stumbling without subsequent striking against object, initial encounter
CPT/HCPCS: 12001; 71250; 74177

== ENCOUNTER 2021-03-30 10:39 | Emergency (ER) | payer OTHER ==
[2021-03-30] MEDS ORDERED: HYDROmorphone 0.5 MG/0.5 ML SYRINGE ONE ×2 (11:58→13:57)
[2021-03-30 12:41] LABS: Mean Corpuscular HGB CONC 32.2 g/dL (32.0-36.0); Mean Corpuscular Hemoglobin 28.8 pg (27.0-31.0); Mean Corpuscular Volume 89.3 fL (78.0-98.0); Mean Platelet Volume 8.5 fL (7.4-10.4); Platelet Count 320 thou/uL (130-400); RBC Distribution Width 12.7 % (11.5-14.5); Red Blood Cell (RBC) Count 5.55 mill/uL (4.70-6.10); White Blood Cell (WBC) Count 22.1 thou/uL (4.8-10.8)
[2021-03-30 13:08] LABS: Band 3 % (5-11); Lymphocytes 6 % (21-51); MDiff Complete? YES; Monocytes 5 % (0-10); Neutrophil 86 % (42-75); Platelet Morphology Comment Appears Adequate; RBC Morphology Normal
[2021-03-30 13:13] LABS: Albumin 4.1 g/dL (3.4-4.8)
[2021-03-30 13:14] LABS: Chloride 95 mmol/L (98-107); Potassium 4.9 mmol/L (3.5-5.1); Sodium 129 mmol/L (136-145)
[2021-03-30 13:15] LABS: Calcium 9.5 mg/dL (7.8-10.44)
[2021-03-30 13:16] LABS: Glucose 371 mg/dL (80-115); Protein, Total 7.1 g/dL (5.8-8.1)
[2021-03-30 13:17] LABS: Anion Gap 19 mmol/L (10-20); Bilirubin, Total 0.8 mg/dL (0.2-1.2); Carbon Dioxide 20 mmol/L (23-31)
[2021-03-30 13:18] LABS: Alkaline Phosphatase 111 U/L (40-110)
[2021-03-30 13:19] LABS: Calc. Creatinine Clearance 0 mL/min (70-130)
[2021-03-30 13:20] LABS: BUN (Urea Nitrogen) 14 mg/dL (8.4-25.7)
[2021-03-30 13:21] LABS: ALT (SGPT) 33 U/L (8-55); AST (SGOT) 37 U/L (5-34)
== END 2021-03-30 18:07 | disposition home or self-care (01) ==
LOC: ERS 10:39
DX: S22.42XA Multiple fractures of ribs, left side, initial encounter for closed fracture (principal); W07.XXXA Fall from chair, initial encounter; I10 Essential (primary) hypertension; E11.9 Type 2 diabetes mellitus without complications; E78.5 Hyperlipidemia, unspecified; E78.00 Pure hypercholesterolemia, unspecified
CPT/HCPCS: 36415; 71260; 80053; 84484; 85025; 93005; 96374; 96376; J1170

== ENCOUNTER 2022-10-01 07:56 | Day surgery (SDC) | payer OTHER ==
[2022-09-25 10:05] VITALS: BMI 37.5
[2022-10-01] MEDS ORDERED: Acetaminophen 500 MG TAB ONE (08:50)
[2022-10-01] MEDS ORDERED: Insulin Regular 300 UNITS/3 ML VIAL ONE (08:50)
[2022-10-01] MEDS ORDERED: Ketorolac Tromethamine 30 MG/ML VIAL ONE (08:50)
[2022-10-01] MEDS ORDERED: Bupivacaine 0.25% HCL 30 ML VIAL ONE (09:41)
[2022-10-01] MEDS ORDERED: EPINEPHrine 1 MG/ML AMP ONE (09:41)
[2022-10-01] MEDS ORDERED: SUGAMMADEX SODIUM 200 MG/2 ML VIAL ONE (10:19)
[2022-10-01] MEDS ORDERED: fentaNYL PF 100 MCG/2 ML SYRINGE ONE (10:19)
[2022-10-01] MEDS ORDERED: CEFAZOLIN 2 GM VIAL ONE (10:22)
[2022-10-01] MEDS ORDERED: Sodium Chloride 0.9% 100 ML ONE (10:22)
[2022-10-01] MEDS ORDERED: Sevoflurane 250 ML INH ANEST BOTTLE ONE (10:23)
[2022-10-01] MEDS ORDERED: NEOSTIGMINE 3 MG/3 ML SYR 3 MG/3 ML SYRINGE ONE (10:36)
[2022-10-01] MEDS ORDERED: ePHEDrine Sulfate 50 MG/10 ML VIAL ONE (10:36)
[2022-10-01] MEDS ORDERED: PROPOFOL 200 MG/20 ML VIAL ONE (10:36)
[2022-10-01] MEDS ORDERED: Rocuronium Bromide 10 MG/ML (10ML VIAL) ONE (10:36)
[2022-10-01] MEDS ORDERED: Glycopyrrolate 0.2 MG/ML 5 ML SYRINGE ONE (10:36)
[2022-10-01] MEDS ORDERED: Lidocaine 1% PF 5 ML VIAL ONE (10:36)
[2022-10-01] MEDS ORDERED: PHENYLEPHRINE-NS 100 MCG/ML 10 ML SYRINGE ONE (10:36)
[2022-10-01] MEDS ORDERED: Ondansetron PF 4 MG/2 ML Vial ONE (10:36)
[2022-10-01] MEDS ORDERED: traMADol HCl 50 MG TAB ONE (14:12)
== END 2022-10-01 14:48 | disposition home or self-care (01) ==
LOC: SDC 07:56
PROVIDERS: ATTEND Specialist
PROC: 0WUF47Z Supplement Abdominal Wall with Autologous Tissue Substitute, Percutaneous Endoscopic Approach (ICD-10-PCS; principal; 2022-10-01)
DX: K42.9 Umbilical hernia without obstruction or gangrene (principal); I48.0 Paroxysmal atrial fibrillation; E11.9 Type 2 diabetes mellitus without complications; E78.2 Mixed hyperlipidemia; I10 Essential (primary) hypertension; K21.9 Gastro-esophageal reflux disease without esophagitis; E87.1 Hypo-osmolality and hyponatremia; E61.1 Iron deficiency; Z88.5 Allergy status to narcotic agent; Z79.01 Long term (current) use of anticoagulants; Z79.82 Long term (current) use of aspirin; Z79.899 Other long term (current) drug therapy
CPT/HCPCS: 36416; 93005; 93010; C1781; J0171; J1815; J1885; J2405; J2704; J3490; S0020

== ENCOUNTER 2022-11-21 18:02 | Emergency (ER) | payer OTHER, MEDICARE ==
[2022-11-21] MEDS ORDERED: Ketorolac Tromethamine 30 MG/ML VIAL ONE (20:15)
[2022-11-21 20:26] LABS: #Eosinphils 0.2 thou/uL (0.0-0.7); #Monocytes 0.6 thou/uL (0.11-0.59); #Neutrophils 3.5 thou/uL (1.40-6.50); %Basophils 0.7 % (0.0-1.0); %Eosinophils 4.2 % (0.0-10.0); %Lymphocytes 22.8 % (21.0-51.0); %Monocytes 11.2 % (0.0-10.0); %Neutrophils 60.7 % (42.0-75.0); Hematocrit 47.7 % (42.0-52.0); Hemoglobin 15.1 g/dL (14.0-18.0); Mean Corpuscular HGB CONC 31.7 g/dL (32.0-36.0); Mean Corpuscular Hemoglobin 27.3 pg (27.0-31.0); Mean Corpuscular Volume 86.1 fl (78.0-98.0); Mean Platelet Volume 10.6 fL (7.4-10.4); Platelet Count 227 10x3/uL (130-400); RBC Distribution Width 13.7 % (11.5-14.5); Red Blood Cell (RBC) Count 5.54 mill/uL (4.70-6.10); White Blood Cell (WBC) Count 5.7 10x3/uL (4.8-10.8)
[2022-11-21 20:48] LABS: ALT (SGPT) 21 U/L (8-55); AST (SGOT) 21 U/L (5-34); Albumin 3.8 g/dL (3.4-4.8); Alkaline Phosphatase 99 U/L (40-110); Anion Gap 12 mmol/L (10-20); BUN (Urea Nitrogen) 9 mg/dL (8.4-25.7); Bilirubin, Total 0.3 mg/dL (0.2-1.2); Calc. Creatinine Clearance 0 mL/min (70-130); Calcium 9.2 mg/dL (7.8-10.44); Carbon Dioxide 22 mmol/L (23-31); Chloride 100 mmol/L (98-107); Estimated GFR 73; Globulin 3.2 g/dL (2.4-3.5); Glucose 204 mg/dL (83-110); Potassium 4.5 mmol/L (3.5-5.1); Sodium 129 mmol/L (136-145)
[2022-11-21 21:45] LABS: SARS-CoV-2 NAA Rapid Test DETECTED (NotDetected)
== END 2022-11-21 22:43 | disposition home or self-care (01) ==
LOC: ERS 18:02
DX: U07.1 COVID-19 (principal); E87.1 Hypo-osmolality and hyponatremia; I10 Essential (primary) hypertension; E11.9 Type 2 diabetes mellitus without complications; Z79.84 Long term (current) use of oral hypoglycemic drugs; Z79.4 Long term (current) use of insulin
CPT/HCPCS: 80053; 85025; 96361; 96374; J1885